=== PATIENT | female | born 1980 | race Caucasian/White ===

== ENCOUNTER 2023-05-14 15:48 | Emergency (ER) | payer BC ==
[2023-05-14] MEDS ORDERED: methylPREDNISolone SOD SUCCI 125 MG/2 ML VIAL IV STA (16:03)
[2023-05-14] MEDS ORDERED: SODIUM CHLORIDE 0.9% 1,000 ML IV STA (16:03)
[2023-05-14] MEDS ORDERED: FAMOTIDINE 20 MG/2 ML VIAL IV STA (16:03)
--- NOTE | 2023-05-14 16:04 | ED ---
General Adult HPI - General Chief complaint: Allergic Reaction Stated complaint: Allergic Reaction Time Seen by Provider: 05/14/23 15:59 Source: patient, RN notes reviewed Mode of arrival: ambulatory Limitations: no limitations - History of Present Illness Initial comments: 43-year-old female resents to the emergency department chief complaint of allerg ic reaction. She states that this started about one hour before arrival to the emergency department. She states that she administered herself her epi-pen and took 100mg of benadryl. She reports that she believes she came in contact with peanuts that she has a known allergic reaction to. She reports mild shortness of breath. Denies swelling of lips and throat. - Related Data Previous Rx's Medication Instructions Recorded Famotidine [Pepcid] 20 mg PO HS #7 tablet 05/14/23 predniSONE [Deltasone] 20 mg PO BID #10 tab 05/14/23 Allergies Allergy/AdvReac Type Severity Reaction Status Date / Time No Known Allergies Allergy Verified 05/14/23 15:52 Review of Systems ROS Statement: Those systems with pertinent positive or pertinent negative responses have been documented in the HPI. ROS Other: All systems not noted in ROS Statement are negative. Past Medical History Past Medical History: No Reported History History of Any Multi-Drug Resistant Organisms: None Reported Past Surgical History: Section Past Psychological History: Anxiety Smoking Status: Current every day smoker Past Alcohol Use History: Occasional Past Drug Use History: Marijuana General Exam Limitations: no limitations General appearance: alert, in no apparent distress Head exam: Present: atraumatic, normocephalic, normal inspection Eye exam: Present: normal appearance, PERRL, EOMI, periorbital swelling. Absent: scleral icterus, conjunctival injection ENT exam: Present: normal exam, normal oropharynx, mucous membranes moist Neck exam: Present: normal inspection. Absent: tenderness, meningismus, l ymphadenopathy Respiratory exam: Present: wheezes (Mild bilateral improved on reevaluation). Absent: respiratory distress, rales, rhonchi, stridor Cardiovascular Exam: Present: regular rate, normal rhythm, normal heart sounds. Absent: systolic murmur, diastolic murmur, rubs, gallop, clicks GI/Abdominal exam: Present: soft, normal bowel sounds. Absent: distended, tenderness, guarding, rebound, rigid Extremities exam: Present: normal inspection, full ROM, normal capillary refill. Absent: tenderness, pedal edema, joint swelling, calf tenderness Back exam: Present: normal inspection Neurological exam: Present: alert, oriented X3, CN II-XII intact Psychiatric exam: Present: normal affect, normal mood Skin exam: Present: warm, dry, intact, normal color. Absent: rash Course Vital Signs 05/14/23 05/14/23 05/14/23 15:48 15:55 17:31 Temperature 98.3 F 97.6 F Pulse Rate 134 H 110 H Pulse Rate [ 130 H Pulse Oximetery ] Pulse Rate [ 130 H Radial] Respiratory 28 H 20 Rate Blood Pressure 116/58 O2 Sat by Pulse 93 L 97 Oximetry 05/14/23 19:18 Temperature 98.0 F Pulse Rate 97 Pulse Rate [ Pulse Oximetery ] Pulse Rate [ Radial] Respiratory 20 Rate Blood Pressure 112/68 O2 Sat by Pulse 97 Oximetry Medical Decision Making - Medical Decision Making Was pt. sent in by a medical professional or institution (, PA, BAG FILLER MACHINE OPERATOR, urgent care, hospital, or [place] [facility] facility...) When possible be specific @ -No Did you speak to anyone other than the patient for history (EMS, parent, family, police, friend...)? What history was obtained from this source @ -No Did you review nursing and triage notes (agree or disagree)? Why? @ -I reviewed and agree with nursing and triage notes Were old charts reviewed (outside hosp., previous admission, EMS record, old EKG, old radiological studies, urgent care reports/EKG's, [place] [facility] records)? Report findings @ -No old charts were reviewed Differential Diagnosis (chest pain, altered mental status, abdominal pain women, abdominal pain men, vaginal bleeding, weakness, fever, dyspnea, syncope, headache, dizziness, GI bleed, back pain, seizure, CVA, palpatations, mental health, musculoskeletal)? @ -allergic reaction, anaphylaxis, angioedema, this list is not all inclusive EKG interpreted by me (3pts min.). @ -none X-rays interpreted by me (1pt min.). @ -CXR showed no evidence of acute process CT interpreted by me (1pt min.). @ -None done U/S interpreted by me (1pt. min.). @ -None done What testing was considered but not performed or refused? (CT, X-rays, U/S, labs)? Why? @ -None What meds were considered but not given or refused? Why? @ -None Did you discuss the management of the patient with other professionals (professionals i.e. , SAMUEL, BAG FILLER MACHINE OPERATOR, lab, RT, psych nurse, director social service, aerial tram operator, teacher, surface to air weapons officer, lining caser)? Give summary @ -No Was smoking cessation discussed for >3mins.? @ -No Was critical care preformed (if so, how long)? @ -No Were there social determinants of health that impacted care today? How? (Homelessness, low income, unemployed, alcoholism, drug addiction, transportation, low edu. Level, literacy, decrease access to med. care, [facility], rehab)? @ -No Was there de-escalation of care discussed even if they declined (Discuss DNR or withdrawal of care, Hospice)? DNR status @ -No What co-morbidities impacted this encounter? (DM, HTN, Smoking, COPD, CAD, Cancer, CVA, ARF, Chemo, Hep., AIDS, mental health diagnosis, sleep apnea, morbid obesity)? @ -None Was patient admitted / discharged? Hospital course, mention meds given and route, prescriptions, significant lab abnormalities, going to OR and other pertinent info. @ -Charge. Patient presented to emergency department chief complaint of ALLERGIC reaction. Prior to arrival patient administered her EpiPen and took 100 mg of Benadryl. Patient reports mild shortness of breath and periorbital swelling. This is typical for her ALLERGIC reaction. She states that she came in contact with peanuts which she has known reaction to. Patient was given IV Solu-Medrol and Pepcid. She reports improvements of her symptoms on reevaluation. Patient was monitored in the ED for around 3 hours and she had improvement in her symptoms. Her shortness of breath has completely resolved, wheezing resolved. Vital signs improved at discharge. Prescription sent the patient's pharmacy for prednisone, Pepcid. She was advised to take his medications as prescribed and take Benadryl with his medications. She is understanding and agreeable with the care plan. Patient stable at time. Case discussed my attending, Undiagnosed new problem with uncertain prognosis? @ -No Drug Therapy requiring intensive monitoring for toxicity (Heparin, Nitro, Insulin, Cardizem)? @ -No Were any procedures done? @ -No Diagnosis/symptom? @ -ALLERGIC reaction Acute, or Chronic, or Acute on Chronic? @ -Acute Uncomplicated (without systemic symptoms) or Complicated (systemic symptoms)? @ -uncomplicatedt Side effects of treatment? @ -No Exacerbation, Progression, or Severe Exacerbation? @ -No Poses a threat to life or bodily function? How? (Chest pain, [place], [place], pneumonia, PE, COPD, DKA, ARF, appy, cholecystitis, CVA, Diverticulitis, Homicidal, Suicidal, threat to staff... and all critical care pts) @ -No - Lab Data Result diagrams: 05/14/23 16:35 05/14/23 16:35 Lab Results 05/14/23 05/14/23 Range/Units 16:35 16:35 WBC 8.6 (3.8-10.6) k/uL RBC 4.86 (3.80-5.40) m/uL Hgb 10.3 L (11.4-16.0) gm/dL Hct 32.7 L (34.0-46.0) % MCV 67.3 L (80.0-100.0) fL MCH 21.2 L (25.0-35.0) pg MCHC 31.5 (31.0-37.0) g/dL RDW 16.8 H (11.5-15.5) % Plt Count 475 H (150-450) k/uL MPV 7.3 Neutrophils % 45 % Lymphocytes % 48 % Monocytes % 2 % Eosinophils % 2 % Basophils % 0 % Neutrophils # 3.8 (1.3-7.7) k/uL Lymphocytes # 4.1 (1.0-4.8) k/uL Monocytes # 0.2 (0-1.0) k/uL Eosinophils # 0.1 (0-0.7) k/uL Basophils # 0.0 (0-0.2) k/uL Hypochromasia Marked Anisocytosis Slight Microcytosis Marked Sodium 138 (137-145) mmol/L Potassium 3.9 (3.5-5.1) mmol/L Chloride 107 (98-107) mmol/L Carbon Dioxide 17 L (22-30) mmol/L Anion Gap 14 mmol/L BUN 13 (7-17) mg/dL Creatinine 0.99 (0.52-1.04) mg/dL Est GFR (CKD-EPI)AfAm 82 (>60 ml/min/1.73 sqM) Est GFR (CKD-EPI)NonAf 71 (>60 ml/min/1.73 sqM) Glucose 140 H (74-99) mg/dL Calcium 8.6 (8.4-10.2) mg/dL Total Bilirubin 0.3 (0.2-1.3) mg/dL AST 33 (14-36) U/L ALT 29 (4-34) U/L Alkaline Phosphatase 78 (38-126) U/L Total Protein 7.2 (6.3-8.2) g/dL Albumin 4.0 (3.5-5.0) g/dL Disposition Clinical Impression: Allergic reaction Disposition: HOME SELF-CARE Condition: Stable Instructions (If sedation given, give patient instructions): Anaphylaxis (ED) Additional Instructions: Take Benadryl with steroids and Pepcid. Please return to the emergency department for new or worsening symptoms. Prescriptions: predniSONE [Deltasone] 20 mg PO BID #10 tab Famotidine [Pepcid] 20 mg PO HS #7 tablet Is patient prescribed a controlled substance at d/c from ED?: No Referrals: None,Stated [REFERRING] - 1-2 days
--- NOTE | 2023-05-14 16:38 | XR ---
EXAMINATION TYPE: XR chest 2V DATE OF EXAM: 05/14/2023 COMPARISON: None INDICATION: Short of breath TECHNIQUE: Frontal and lateral views of the chest are obtained. FINDINGS: The heart size is normal. The pulmonary vasculature is normal. The lungs are clear. IMPRESSION: 1. No acute pulmonary process.
[2023-05-14 16:45] LABS: Anisocytosis Slight; Basophils % (A) 0 %; Eosinophils # (A) 0.1 k/uL (0-0.7); Eosinophils % (A) 2 %; HCT 32.7 % (34.0-46.0); HGB 10.3 gm/dL (11.4-16.0); Hypochromasia Marked; Lymphocytes # (A) 4.1 k/uL (1.0-4.8); Lymphocytes % (A) 48 %; MCH 21.2 pg (25.0-35.0); MCHC 31.5 g/dL (31.0-37.0); MCV 67.3 fL (80.0-100.0); Mean Platelet Volume 7.3; Microcytosis Marked; Monocytes # (A) 0.2 k/uL (0-1.0); Monocytes % (A) 2 %; Neutrophils # (A) 3.8 k/uL (1.3-7.7); Neutrophils % (A) 45 %; Platelet Count 475 k/uL (150-450); RBC 4.86 m/uL (3.80-5.40); RDW 16.8 % (11.5-15.5); WBC 8.6 k/uL (3.8-10.6)
[2023-05-14 17:00] LABS: ALT 29 U/L (4-34); AST 33 U/L (14-36); African American GFR (CKD) 82 (>60 ml/min/1.73 sqM); Alkaline Phosphatase 78 U/L (38-126); Anion Gap 14 mmol/L; Blood Urea Nitrogen 13 mg/dL (7-17); Calcium 8.6 mg/dL (8.4-10.2); Carbon Dioxide 17 mmol/L (22-30); Chloride 107 mmol/L (98-107); Glucose 140 mg/dL (74-99); Non-African American GFR(CKD) 71 (>60 ml/min/1.73 sqM); Potassium 3.9 mmol/L (3.5-5.1); Sodium 138 mmol/L (137-145); Total Bilirubin 0.3 mg/dL (0.2-1.3); Total Protein 7.2 g/dL (6.3-8.2)
[2023-05-14 17:32] VITALS: RESP 20
[2023-05-14] MEDS ORDERED: IBUPROFEN 600 MG TAB PO STA (18:30)
[2023-05-14 19:20] VITALS: BP 112/68; PULSE 97; TEMP 98
== END 2023-05-14 19:18 | disposition home or self-care (01) ==
LOC: EC 15:48
DX: R06.02 Shortness of breath (principal); T45.0X5A Adverse effect of antiallergic and antiemetic drugs, initial encounter; F12.90 Cannabis use, unspecified, uncomplicated; F17.200 Nicotine dependence, unspecified, uncomplicated; Z86.59 Personal history of other mental and behavioral disorders
CPT/HCPCS: 36415; 80053; 85025; 71046; 99283; 96374; 96375; 96361; J2930